=== PATIENT | female | born 1955 | race Caucasian/White ===

== ENCOUNTER → 2016-05-17 | Outpatient (CLI) | payer BC ==
--- NOTE | 2016-05-17 14:23 | REPMRS ---
Patient History The patient states she had a clinical breast exam in 04/2016. Patient is postmenopausal. No known family history of cancer. Digital Woman Screen Mammo: May 17, 2016 - Exam #: [id number] Bilateral CC and MLO view(s) were taken. Technologist: Mariella Romero, Technologist Prior study comparison: May 17, 2015, digital woman screen mammo performed at [facility]. May 12, 2014, digital woman screen mammo performed at [facility]. FINDINGS: There are scattered fibroglandular densities. There has been no change in the appearance of the mammogram from the prior studies. There is a mild amount of residual fibroglandular tissue which is fairly symmetric. There is no interval development of dominant mass, architectural distortion, or clustered microcalcification suggestive of malignancy. ASSESSMENT: BI-RADS/ACR category 1 mammogram. Negative. Recommendation Routine screening mammogram in 1 year (for women over age 40). This mammogram was interpreted with the aid of an FDA-approved computer-aided dectection system. Electronically Signed By: Norris Mathias MD 05/17/16 [id number]
== END ==
LOC: M WHC 12:56
PROVIDERS: ATTEND Nurse Practitioner Family
DX: Z12.31 Encounter for screening mammogram for malignant neoplasm of breast (principal)

== ENCOUNTER → 2016-05-17 | Outpatient (REF) | payer BC | LOC: M SFHCWAGY 13:16 | PROVIDERS: ATTEND Nurse Practitioner Family | DX: Z12.4 Encounter for screening for malignant neoplasm of cervix (principal) ==

== ENCOUNTER → 2017-05-20 | Outpatient (CLI) | payer BC | LOC: M WHC 13:03 | DX: Z12.31 Encounter for screening mammogram for malignant neoplasm of breast (principal) | CPT/HCPCS: 77067 ==

== ENCOUNTER 2018-01-24 06:42 | Day surgery (SDC) | payer BC ==
[2018-01-24] MEDS ORDERED: LIDOCAINE 2% INJ 100 MG/5 ML SDV (FOR ANES.) As Ordered (07:04)
[2018-01-24] MEDS ORDERED: PROPOFOL 200 MG/20 ML VIAL As Ordered ×2 (07:04→07:40)
[2018-01-24] MEDS: NS 1,000 ML IV (07:16)
== END 2018-01-24 08:56 | disposition home or self-care (01) ==
LOC: M OPP 06:42
DX: K57.30 Diverticulosis of large intestine without perforation or abscess without bleeding (principal); D12.2 Benign neoplasm of ascending colon; K63.5 Polyp of colon; K64.8 Other hemorrhoids; Z80.0 Family history of malignant neoplasm of digestive organs; Z91.048 Other nonmedicinal substance allergy status; Z79.899 Other long term (current) drug therapy
CPT/HCPCS: 45385

== ENCOUNTER → 2018-08-07 | Outpatient (REF) | payer BC ==
[~2018-08-07] MED LIST: BISOPROLOL-HCTZ PO; FLON1SPR; LISI-1046 PO
[2018-08-09 15:14] LABS: HPV HYBRID CAPTURE II Negative (Negative)
== END ==
LOC: M SFHCWAGY 14:22
PROVIDERS: ATTEND Nurse Practitioner Family
DX: Z12.4 Encounter for screening for malignant neoplasm of cervix (principal)
CPT/HCPCS: 87624; G0123

== ENCOUNTER → 2018-08-07 | Outpatient (CLI) | payer BC ==
--- NOTE | 2018-08-07 15:39 | REPMRS ---
Patient History The patient states she had a clinical breast exam in 07/2018. Patient is postmenopausal. No known family history of cancer. No Hormone Replacement Therapy Digital Woman Screen Mammo: August 07, 2018 - Exam #: [id number] Bilateral CC and MLO view(s) were taken. Technologist: Mariella Romero, Technologist Prior study comparison: May 20, 2017, digital woman screen mammo performed at [facility]. May 17, 2016, digital woman screen mammo performed at [facility]. May 17, 2015, digital woman screen mammo performed at [facility]. FINDINGS: The breast tissue is almost entirely fat. There has been no change in the appearance of the mammogram from the prior studies. There is no interval development of dominant mass, architectural distortion, or clustered microcalcification typical of malignancy. 3-D tomosynthesis shows no additional findings. Assessment: BI-RADS/ACR category 1 mammogram. Negative Mammogram. Recommendation Routine screening mammogram of both breasts in 1 year (for women over age 40). This patient's Lifetime Breast Cancer RIsk is estimated at 6.8 %. This mammogram was interpreted with the aid of an FDA-approved computer-aided dectection system. Electronically Signed By: Catalino Earl MD 08/07/18 0015
== END ==
LOC: M WHC 13:46
PROVIDERS: ATTEND Nurse Practitioner Family
DX: Z12.31 Encounter for screening mammogram for malignant neoplasm of breast (principal)

== ENCOUNTER → 2019-10-08 | Outpatient (REF) | payer BC, MEDICARE ==
[~2019-10-08] MED LIST changes: -LISI-1046 PO; +LISI2.5T2 PO
== END ==
LOC: M SFHCPLAZ 11:59
PROVIDERS: ATTEND Nurse Practitioner Family
DX: Z12.4 Encounter for screening for malignant neoplasm of cervix (principal); N95.2 Postmenopausal atrophic vaginitis
CPT/HCPCS: G0101; G0123

== ENCOUNTER → 2019-10-26 | Outpatient (CLI) | payer MEDICARE ==
--- NOTE | 2019-11-23 08:46 | REP ---
BILATERAL MAMMOGRAM DIAGNOSTIC WITH RIGHT AXILLARY ULTRASOUND: HISTORY: Right axillary pain since April on and off, no current right axillary pain. COMPARISON: Mammogram from 08/07/18 and 05/20/17. FINDINGS: MLO and CC views of both breasts performed with 3D tomosynthesis. Volpara breast density is A. Lifetime risk of breast cancer is 6.5%. The breast parenchyma is predominantly fatty replaced. No mass is seen in either breast and there is no architectural distortion. Benign calcifications are seen scattered bilaterally. Normal-appearing axillary lymph nodes are seen bilaterally on the MLO views. Real time sonographic evaluation of the right axillary region performed. Two morphologically normal-appearing lymph nodes are seen with a thin hypoechoic rim and an extensive fatty hilum in each lymph node. Short axis dimension is in the range of 1 cm. IMPRESSION: ACR 2 benign. No suspicious mass or clustered microcalcifications bilaterally. No suspicious abnormality in the right axilla. Clinical correlation and follow up recommended. A negative mammogram and ultrasound should not deter biopsy if there is a clinically suspicious palpable abnormality present. Recommend follow up mammogram in one year. This mammogram was interpreted with the aid of an FDA approved computer-aided detection system. Last clinical breast examination was performed greater than one year ago. Mammogram letter: 2. NUPURD
== END ==
LOC: M WHC 10:27
PROVIDERS: ATTEND Nurse Practitioner Family
DX: M79.621 Pain in right upper arm (principal); R92.2 Inconclusive mammogram
CPT/HCPCS: 76642; 77066; G0279

== ENCOUNTER → 2020-10-11 | Outpatient (REF) | payer MEDICARE ==
[~2020-10-11] MED LIST changes: -LISI2.5T2 PO; +LISI2.5T9 PO
== END ==
LOC: M SFHCWAGY 12:49
PROVIDERS: ATTEND Nurse Practitioner Women's Health
DX: Z12.4 Encounter for screening for malignant neoplasm of cervix (principal); Z12.31 Encounter for screening mammogram for malignant neoplasm of breast; N95.2 Postmenopausal atrophic vaginitis; R92.1 Mammographic calcification found on diagnostic imaging of breast
CPT/HCPCS: 77063; 77067; G0101; G0123

== ENCOUNTER → 2020-10-11 | Outpatient (CLI) | payer MEDICARE ==
--- NOTE | 2020-10-11 09:55 | REP ---
INDICATION: scr mammo. COMPARISON: Multiple TECHNIQUE: Digital screening mammography was carried out bilaterally in the CC and MLO projections using both 2D and 3D modalities and compared to the prior exams. By history, the patient has no complaints of a palpable breast abnormality or other significant breast complaints. FINDINGS: The breasts are unchanged in size shape. There are no last soft tissue densities or spiculated masses. There is no internal architectural distortion. Stable benign calcifications are seen bilaterally. There is no skin thickening or nipple retraction. The Volpara volumetric breast density pattern is b. IMPRESSION: BIRADS/ACR category 2 benign mammogram. There is no evidence of malignant alteration of the breasts. This patient's Tyrer-Cuzick lifetime breast cancer risk assessment score is unknown%. This mammogram was interpreted with the aid of an FDA-approved computer-aided detection system. The patient states she had a clinical breast exam in none. The patient letter being requested is M1. RECOMMENDATION: Repeat screening mammography recommended 1 year (for women over 40). <Electronically signed by Tera Kirkland > 10/11/20 0915
== END ==
LOC: M WHC 07:47
PROVIDERS: ATTEND Nurse Practitioner Women's Health
DX: Z12.31 Encounter for screening mammogram for malignant neoplasm of breast (principal); R92.1 Mammographic calcification found on diagnostic imaging of breast

== ENCOUNTER → 2021-12-06 | Outpatient (CLI) | payer MEDICARE | LOC: M WHC 14:58 | PROVIDERS: ATTEND Nurse Practitioner Family | DX: Z12.31 Encounter for screening mammogram for malignant neoplasm of breast (principal) ==

== ENCOUNTER 2023-04-25 06:48 | Day surgery (SDC) | payer MEDICARE ==
[~2023-04-25] VITALS: Ht 162.6 cm; Wt 89.3 kg
[~2023-04-25 06:48] MED LIST changes: +BISO10TA14 PO; +GLIP10TA18 PO; +LISI5TAB11 PO; +METF10004 PO
[2023-04-25] MEDS: NS 1,000 ML IV ONE (07:19)
[2023-04-25] MEDS ORDERED: LIDOCAINE 2% 100MG/5ML SDV (FOR ANES.) As Ordered ONE (07:58)
[2023-04-25] MEDS ORDERED: propofoL 500 MG/50 ML VIAL As Ordered ONE (07:58)
[2023-04-25 08:06] VITALS: TEMP 97.2
[2023-04-25 08:24] VITALS: BP 123/53; O2SAT 20
== END 2023-04-25 08:26 | disposition home or self-care (01) ==
LOC: M OPP 06:48
PROVIDERS: ATTEND Internal Medicine Gastroenterology
DX: Z12.11 Encounter for screening for malignant neoplasm of colon (principal); D12.2 Benign neoplasm of ascending colon; D12.0 Benign neoplasm of cecum; K57.30 Diverticulosis of large intestine without perforation or abscess without bleeding; K64.8 Other hemorrhoids; Z86.010 Personal history of colon polyps; I10 Essential (primary) hypertension; E11.9 Type 2 diabetes mellitus without complications; Z79.84 Long term (current) use of oral hypoglycemic drugs; Z79.899 Other long term (current) drug therapy